=== PATIENT | male | born 1955 | race Caucasian/White ===

== ENCOUNTER 2021-04-28 11:57 | Observation (INO) ==
[2021-04-28 13:47] LABS: Red Cell Distribution Width 16.9 % (11.5-14.5)
[2021-04-28 13:48] LABS: Basophils % 1.5 %; Hematocrit 27.5 % (37.5-50.1); Hemoglobin 9.3 g/dL (12.9-16.9); Lymphocytes # 0.4 K/mcL (0.6-4.6); Lymphocytes % 21.8 %; Mean Corpuscular HGB Conc 33.8 g/dL (31.6-35.5); Mean Corpuscular Hemoglobin 32.4 pg (28.0-33.3); Mean Corpuscular Volume 95.8 fL (83.0-100.0); Mean Platelet Volume 9.3 fL (9.4-12.4); Monocytes # 0.2 K/mcL (0.0-1.3); Monocytes % 9.1 %; Neutrophils # 1.3 K/mcL (1.6-8.9); Platelet Count 219 K/mcL (140-400); Red Blood Count 2.87 M/mcL (4.19-5.50); Segmented Neutrophils % 65.6 %
[2021-04-28 13:58] LABS: INR 1.3; Prothrombin Time 15.2 Seconds (9.4-12.1)
[2021-04-28 14:00] LABS: Activated Partial Thrombo Time 33.3 Seconds (26.0-36.0)
[2021-04-28 14:14] LABS: Alanine Aminotransferase 23 Units/L (7-52); Albumin 3.8 g/dL (3.5-5.7); Albumin/Globulin Ratio 1.5 (1.1-2.2); Alkaline Phosphatase 41 Units/L (34-104); Aspartate Amino Transferase 14 Units/L (13-39); BUN/Creatinine Ratio 18 (6-26); Bilirubin,Direct 0.1 mg/dL (0.0-0.2); Bilirubin,Indirect 0.8 mg/dL (0.0-1.0); Bilirubin,Total 0.9 mg/dL (0.3-1.0); Blood Urea Nitrogen 14 mg/dL (8-23); Calcium 9.5 mg/dL (8.6-10.3); Carbon Dioxide 27 mEq/L (23-29); Chloride 98 mEq/L (98-107); Globulin 2.6 g/dL (2.4-3.5); Glucose 125 mg/dL (70-105); Lactate Dehydrogenase 161 Units/L (140-271); Magnesium 1.8 mg/dL (1.6-2.6); Osmolality,Calculated 276 (280-300); Phosphorous 3.2 mg/dL (2.7-4.5); Potassium 3.6 mEq/L (3.5-5.1); Sodium 132 mEq/L (136-145); Total Protein 6.4 g/dL (6.4-8.9); Troponin I < 0.03 ng/mL (< 0.04); eGFR For African Americans > 60 (> 60); eGFR For Non-African Americans > 60 (> 60)
[2021-04-28 14:25] LABS: Ferritin 658 ng/mL (20-250)
[2021-04-28] MEDS ORDERED: dexAMETHasone 4 MG TABLET PO ONE (15:30)
[2021-04-28] MEDS ORDERED: Naloxone 0.4 MG/ML INJ IVP PRN (17:04)
[2021-04-28] MEDS ORDERED: *HR* OxyCODONE Immed Rel 5 MG TABLET PO PRN (17:04)
[2021-04-28] MEDS ORDERED: *HR* HYDROcodone/Acet 5/325 mg TABLET PO PRN (17:04)
[2021-04-28] MEDS ORDERED: Ondansetron 4 MG/2 ML VIAL IVP PRN (17:04)
[2021-04-28 18:38] LABS: C-Reactive Protein 118 mg/L (Less than 10)
[2021-04-29] MEDS: Acetaminophen 325 MG TABLET PO PRN ×2 (00:21→07:40)
[2021-04-29 04:37] VITALS: TEMP 98.7
[2021-04-29 05:54] LABS: Immature Granulocytes % 1.3 % (0-4); Red Cell Distribution Width 16.6 % (11.5-14.5)
[2021-04-29 05:55] LABS: Basophils % 0.6 %; Hematocrit 27.7 % (37.5-50.1); Hemoglobin 9.1 g/dL (12.9-16.9); Lymphocytes # 0.4 K/mcL (0.6-4.6); Lymphocytes % 23.2 %; Mean Corpuscular HGB Conc 32.9 g/dL (31.6-35.5); Mean Corpuscular Hemoglobin 31.5 pg (28.0-33.3); Mean Corpuscular Volume 95.8 fL (83.0-100.0); Mean Platelet Volume 9.1 fL (9.4-12.4); Monocytes # 0.2 K/mcL (0.0-1.3); Monocytes % 10.3 %; Platelet Count 201 K/mcL (140-400); Red Blood Count 2.89 M/mcL (4.19-5.50); Segmented Neutrophils % 64.6 %; White Blood Count 1.6 K/mcL (4.3-11.1)
[2021-04-29 06:14] LABS: BUN/Creatinine Ratio 20 (6-26); Blood Urea Nitrogen 15 mg/dL (8-23); Calcium 9.1 mg/dL (8.6-10.3); Carbon Dioxide 24 mEq/L (23-29); Chloride 96 mEq/L (98-107); Glucose 180 mg/dL (70-105); Osmolality,Calculated 277 (280-300); Potassium 3.7 mEq/L (3.5-5.1); Sodium 131 mEq/L (136-145); eGFR For African Americans > 60 (> 60); eGFR For Non-African Americans > 60 (> 60)
[2021-04-29 06:42] LABS: Platelet Estimate Normal (Normal)
[2021-04-29 07:39] VITALS: BP 168/69; PULSE 91; O2SAT 98
[2021-04-29] MEDS ORDERED: Fluticasone Propionate Nasal 50 MCG/SPRAY BOTTLE NS PRN (07:46)
[2021-04-29] MEDS ORDERED: *HR* Rivaroxaban 15 MG TABLET PO SCH (09:00)
[2021-04-29] MEDS ORDERED: hydroCHLOROthiazide 25 MG TABLET PO SCH (09:00)
[2021-04-29] MEDS ORDERED: Ciprofloxacin HCL Soln 5 ML BOTTLE BOTH EYES SCH (09:00)
[2021-04-29] MEDS ORDERED: Loratadine 10 MG TABLET PO SCH (09:00)
[2021-04-29] MEDS ORDERED: Cholecalciferol (D-3) 1,000 UNIT (25MCG) TABLET PO SCH (09:00)
[2021-04-29] MEDS ORDERED: NON-FORMULARY MEDICATION 1 EACH EACH (Omega-3/Dha/Epa/Fish Oil [Fish Oil 1,000 Mg Softgel] PO SCH (09:00)
[2021-04-29] MEDS ORDERED: NON-FORMULARY MEDICATION 1 EACH EACH (Potassium 99 MG Tablet) PO SCH (09:00)
[2021-04-29] MEDS ORDERED: carvediloL 6.25 MG TABLET PO SCH (09:00)
[2021-04-29] MEDS ORDERED: NON-FORMULARY MEDICATION 1 EACH EACH (Vit C/E/Zn/Coppr/Lutein/Zeaxan [Preservision Areds 2 PO SCH (09:00)
[2021-04-29] MEDS ORDERED: Multivit/Ca/Min/Fe/FA 1 TAB TABLET PO SCH (09:00)
[2021-04-29] MEDS ORDERED: NON-FORMULARY MEDICATION 1 EACH EACH (Ubidecarenone [Coq10] 50 MG Tab.Chew) PO SCH (09:00)
[2021-04-29] MEDS ORDERED: Niacin (24 HR) 500 MG TAB.ER.24H PO SCH (09:00)
== END 2021-04-29 12:58 | disposition home or self-care (01) ==
LOC: EMEROOARM 11:57 → 3NENU 11:57 → SUATTDRO 16:53
PROVIDERS: ADMIT Internal Medicine; ATTEND Internal Medicine